=== PATIENT | male | born 1990 | race Caucasian/White ===

== ENCOUNTER → 2019-10-24 01:40 | Emergency (ER) | payer SELFPAY ==
[~2019-10-24 01:40] MED LIST: Amoxicillin/Clavulanate TAB* 875 MG PO ONE; Lidocaine 1% INJ* 10 MG/ML 30 ML SDV ONE; Morphine 4 MG/ML VIAL (1 ml) 4 MG/ML VIAL IV ONE; Multivitamins/Minerals TAB PO SCH; NS 0.9% 1000 ML** 1,000 ML IV ONE; Ondansetron INJ* 2 MG/ML VIAL IV ONE
--- NOTE | 2019-10-24 01:58 | ED ---
Laceration/Wound HPI - HPI Summary HPI Summary: 29 year old right-handed M arriving via private car complains of right forearm laceration while using a eyeglass lens grinder tool minutes prior to arrival. Patient states he was using a eyeglass lens grinder tool in reverse, wasn't paying attention, and cut his right forearm, and saw pieces of his arm flesh fly off. 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 Last tetanus 6 months ago. Symptoms rated 10/10 in severity. Symptoms aggravated by nothing. Symptoms alleviated by nothing. No PMHx. Medications reviewed. Does not take any medications. Allergies reviewed. No allergies. Has had orthopedic surgeries. No alcohol, recreational drugs, tobacco use. - History of Current Complaint Stated Complaint: ARM LAC PER PT Hx Obtained From: Patient Onset/Duration: Lasting Minutes, Still Present Aggravating: Nothing Alleviating: Nothing Current Severity: Severe Pain Intensity: 10 Pain Scale Used: 0-10 Numeric - Allergy/Home Medications Allergies/Adverse Reactions: Allergies Allergy/AdvReac Type Severity Reaction Status Date / Time No Known Allergies Allergy Verified 10/24/19 01:44 Home Medications: Home Medications Multivitamin [Multiple Vitamins] 1 tab PO DAILY 10/24/19 [History Confirmed ] PMH/Surg Hx/FS Hx/Imm Hx Endocrine/Hematology History: Denies: Hx Diabetes Cardiovascular History: Denies: Hx Hypertension - Surgical History Surgical History: None Infectious Disease History: No Infectious Disease History: Denies: Traveled Outside the [place] in Last 30 Days - Family History Known Family History: Positive: Cardiac Disease - Social History Alcohol Use: None Substance Use Type: Reports: None Smoking Status (MU): Never Smoked Tobacco Review of Systems - ROS Summary Review of Systems Summary: Home Medications Medication Instructions Recorded Confirmed Type Multivitamin [Multiple Vitamins] 1 tab PO DAILY 10/24/19 10/24/19 History Negative: Fever Positive: Other - R forearm laceration All Other Systems Reviewed And Are Negative: Yes Physical Exam - Summary Physical Exam Summary: General: Well-developed, Well-nourished MALE. No acute distress. HEENT: Normocephalic, Atraumatic. Eyes: Conjuctiva normal, PERRL. Oropharynx: Clear, mucous membranes moist, (-) exudates. Neck: Soft, FROM, (-) lymphadenopathy, (-) thyromegaly, (-) JVD. Cardiovascular: Normal sinus rhythm, (-) murmur. Lungs: Clear to auscultation bilaterally (-) wheezes, (-) rales, (-) rhonchi. Abdomen: Soft, non-tender, non-distended, (-) organomegaly, normal bowel sounds. Back: (-) CVA tenderness Extremities: 5-cm long x 2-cm deep laceration on his medial distal right forearm ; decreased sensation and strength in his fifth finger, good capillary refill; somewhat decreased strength in his 4th finger, good capillary refill, good sensation; good sensation, good strength, good capillary refill, normal pulse in his remaining 3 fingers; Skin: Warm, dry, (-) rash. Neuro: Alert and oriented x3, no focal deficits. Psychiatric: Mood normal, affect normal. Triage Information Reviewed: Yes Vital Signs On Initial Exam: Initial Vitals Temp Pulse Resp BP Pulse Ox 97.2 F 63 16 139/85 99 10/24/19 01:43 10/24/19 01:43 10/24/19 01:43 10/24/19 01:43 10/24/19 01:43 Vital Signs Reviewed: Yes Procedures - Sedation Patient Received Moderate/Deep Sedation with Procedure: No - Laceration/Wound Repair 1 Location: upper extremity - medial distal right forearm Description: Linear Anesthesia: 1.0% - without epi Length, Depth and Shape: 5 cm long x 2 cm. Jagged Irrigated w/ Saline (ccs): 500 - thoroughly rinsed out with sterile saline Laceration/Wound Explored: contaminated Closure: Single Layer Debridement: minimal Suture Type: Nylon - 3-o Number of Sutures: 10 - no neurovascular changes from previous exam. pt tolerated procedure well. Sterile Dressing Applied?: Yes - bulky dressing and antibiotic ointment applied Diagnostics - Vital Signs Vital Signs Temp Pulse Resp BP Pulse Ox 10/24/19 01:43 97.2 F 63 16 139/85 99 - Laboratory Result Diagrams: 10/24/19 02:10 10/24/19 02:10 Lab Statement: Any lab studies that have been ordered have been reviewed, and results considered in the medical decision making process. - Radiology Right forearm x-ray Radiology Interpretation Completed By: Radiologist Summary of Radiographic Findings: There is a soft tissue laceration noted overlying the distal forearm with. associated soft tissue swelling. There are multiple punctate radiopaque foreign bodies noted within the soft tissue. No acute fracture or dislocation. ED physician has reviewed this report. Re-Evaluation - Re-Evaluation First Eval Re-Evaluation Time: 04:19 Comment: informed x-ray results Laceration Repair Course/Dx - Course Course Of Treatment: 29-year-old male presents from home after sustaining injury to his right hand with a eyeglass lens grinder. States he was working on his furnace with a eyeglass lens grinder. It slipped and cut through his arm. Severe pain in his right forearm. Patient given normal saline fluids, morphine, fentanyl and Zofran. X- ray showed no definitive fracture. Due to weakness and decreased sensation in the fourth and fifth digits the wound was cleaned out thoroughly with sterile saline and closed. Discussed with the refill purification operator. Patient will follow up with plastics for definitive treatment. - Clinical Impression Provider Diagnoses: Laceration of right forearm - Physician Notifications Discussed Care Of Patient With: Viviana Saldana Time Discussed With Above Provider: 05:16 Discharge ED - Sign-Out/Discharge Documenting (check all that apply): Patient Departure - Discharge Plan Condition: Stable Disposition: HOME Prescriptions: Amoxicillin/Clavulanate TAB* [Augmentin TAB 875*] 875 mg PO BID #20 tab oxyCODONE/Acetamin 5/325 MG* [Percocet 5/325 TAB*] 1 tab PO Q4H PRN #20 tab MDD 6 PRN Reason: severe pain Patient Education Materials: Laceration (ED) Forms: *Gen. Provider Communication Referrals: Marcin Mendoza MD [Medical Doctor] - 10/25/19 Additional Instructions: Take Augmentin as prescribed. You are being referred to plastic surgery. Call Dr. Mendoza's office on 10/25/19 to make an appointment for Tuesday10/29/19. Return to the Emergency Department for new or worsening symptoms. - Billing Disposition and Condition Condition: STABLE Disposition: Home - Attestation Statements Document Initiated by Scribe: Yes Documenting Scribe: Grisel Sanchez Provider For Whom Scribe is Documenting (Include Credential): Raquel Hernandez MD Scribe Attestation: Grisel Omer, scribed for Raquel Hernandez MD on 10/24/19 at 0614. Scribe Documentation Reviewed: Yes Provider Attestation: The documentation as recorded by the scribe, Grisel Sanchez accurately reflects the service I personally performed and the decisions made by me, Raquel Hernandez MD Status of Scribe Document: Viewed
[2019-10-24 02:25] LABS: ABS Basophils 0.1 10^3/ul (0-0.2); ABS Eosinophils 0.2 10^3/ul (0-0.6); ABS Lymphocytes 1.8 10^3/ul (1.0-4.8); ABS Monocytes 0.8 10^3/ul (0-0.8); ABS Neutrophils 7.5 10^3/ul (1.5-7.7); Eosinophil % 1.5 %; Hematocrit 42 % (42-52); Hemoglobin 14.6 g/dL (14.0-18.0); Lymphocyte % 17.7 %; Mean Corpuscular HGB Conc 35 g/dL (31-36); Mean Corpuscular Hemoglobin 31 pg (27-31); Mean Corpuscular Volume 87 fL (80-94); Mean Platelet Volume 7.3 fL (7.4-10.4); Platelet Count 266 10^3/uL (150-450); Red Blood Count 4.76 10^6 /uL (4.18-5.48); Red Cell Distribution Width 12 % (10-15); White Blood Count 10.4 10^3/uL (3.5-10.8)
[2019-10-24 02:28] LABS: INR 0.94 (0.82-1.09)
[2019-10-24 02:40] LABS: Albumin 4.7 g/dL (3.2-5.2); Albumin/Globulin Ratio 1.5 (1-3); BUN/Creatinine Ratio 24.4 (8-20); Calcium 9.8 mg/dL (8.6-10.3); EGFR African American 119.1 (>60); EGFR Non-African American 98.4 (>60); Globulin 3.1 g/dL (2-4); Potassium 3.9 mmol/L (3.5-5.0); Total Bilirubin 0.3 mg/dL (0.2-1.0); Total Protein 7.8 g/dL (6.4-8.9)
[2019-10-24 06:34] VITALS: BP 122/95
== END | disposition home or self-care (01) ==
LOC: ED 01:40
DX: S51.811A Laceration without foreign body of right forearm, initial encounter (principal); W29.8XXA Contact with other powered hand tools and household machinery, initial encounter; Y92.9 Unspecified place or not applicable
CPT/HCPCS: 12002; 36415; 80053; 85025; 85610; 96361; 96374; 96375; 96376; 99283; A9270-GY; J2270; J2405